=== PATIENT | male | born 1990 | race Caucasian/White ===

== ENCOUNTER 2021-06-11 09:06 | Emergency (ER) | payer SELFPAY ==
[~2021-06-11] VITALS: Ht 172.7 cm; Wt 86.2 kg
[2021-06-11] MEDS ORDERED: CASIRIVIMAB/IMDEVIMAB 10 ML in SODIUM CHLORIDE 0.9% 100 ML IV ONE (09:45)
[2021-06-11 10:45] VITALS: BP 135/75
== END 2021-06-11 11:00 | disposition home or self-care (01) ==
LOC: ER 09:38
DX: U07.1 COVID-19 (principal); R06.02 Shortness of breath; R05.9 Cough, unspecified
CPT/HCPCS: 71045; 99283; J7050